=== PATIENT | female | born 1965 | race Caucasian/White ===

== ENCOUNTER → 2017-07-09 | Outpatient (CLI) | payer OTHER ==
--- NOTE | ~2017-07-09 | MR17 ---
[facility] A Service of [facility] & [facility] / [facility] RADIOLOGY TEXT RESULTS PATIENT: GENA GALVEZ LOCATION: [facility] : 69 UNIT #: [id number] AGE: [address]: Chelsi Campos APRN SEX: F ORDER DR: [id number] [facility] [address] [place], [place] [address] [id number] O MR#: [id number] Acc #: [id number] NAME: GENA GALVEZ : 1965 SEX: F STUDY DATE/TIME: 07/09/2017 15:48 UNIT: [facility] ROOM: STUDY DESCRIPTION: MR Brain WWo Contrast Attending Physician: Chelsi Campos A.P.R.N. Referring Physician: Chelsi Campos A.P.R.N. Ordering Physician: Chelsi Campos A.P.R.N. Primary Care Physician: Chelsi Campos A.P.R.N. MRI CENTER REPORT This report is preliminary unless electronic signature is present. EXAM MRI of the brain with and without contrast dated 07/09/2017 COMPARISON None. HISTORY Status post fall with trauma to the head. Patient needed stitches in the left temporal region in October 2016. In mid April 2017, patient had blurry vision on and off. Dizziness. FINDINGS Multisequence, multiplanar imaging of the brain was obtained with and without contrast. 14 mL of MultiHance was administered intravenously. No acute stroke, space-occupying intracranial mass, mass effect, midline shift or hydrocephalus. Age-appropriate parenchymal volume is seen. Vascular flow voids of the major cerebral arteries and dural venous sinuses are not completely occluded in these thicker slices. Nasal septum is deviated to the right with an apical spur. Paranasal sinuses, orbits with the ocular structures are unremarkable. Mild bilateral mastoid mucosal thickening is seen. Postcontrast sequences do not demonstrate any significant abnormality. IMPRESSION No demonstrable intracranial abnormality. Dictated by... Abhinav Bettencourt M.D. THIS IS AN ELECTRONICALLY VERIFIED REPORT Abhinav Bettencourt M.D. at 07/11/2017 5:24 PM CPR/mjs [facility] A Service of [facility] & [facility] / [facility] RADIOLOGY TEXT RESULTS PATIENT: GENA GALVEZ [facility] [birth year] UNIT #: [id number] AGE: [address]: Chelsi Campos APRN SEX: F ORDER DR: TD: 07/10/2017 10:12 JOB #: [id number] MRI CENTER REPORT Page 1 of 1 COPY
== END | disposition home or self-care (01) ==
LOC: CMRI 15:18
DX: R51 Headache (principal); H53.9 Unspecified visual disturbance
CPT/HCPCS: 70553; A9577